=== PATIENT | female | born 1990 | race African-American/Black ===

== ENCOUNTER 2017-08-13 10:10 | Observation (INO) | payer MEDICAID, OTHER ==
[~2017-08-13 10:10] MED LIST: DIPH25TA26
== END 2017-08-13 13:00 | disposition home or self-care (01) | DRG 566 ==
LOC: LDRP 10:10
PROVIDERS: ADMIT Obstetrics & Gynecology; ATTEND Obstetrics & Gynecology
DX: O62.9 Abnormality of forces of labor, unspecified (principal); O26.893 Other specified pregnancy related conditions, third trimester; M54.9 Dorsalgia, unspecified; R10.9 Unspecified abdominal pain; Z3A.37 37 weeks gestation of pregnancy
CPT/HCPCS: 59025; 76818; 81002; G0378

== ENCOUNTER 2017-09-03 10:26 | Observation (INO) | payer MEDICAID | END 2017-09-03 14:50 | disposition home or self-care (01) | DRG 566 | LOC: LDRP 10:26 | PROVIDERS: ADMIT Specialist; ATTEND Specialist | DX: O48.0 Post-term pregnancy (principal); Z3A.40 40 weeks gestation of pregnancy | CPT/HCPCS: 59025; 76818; 81002; G0378 ==

== ENCOUNTER 2017-09-05 10:05 | Observation (INO) | payer MEDICAID ==
[2017-09-05] MEDS ORDERED: PREN-96 PO (11:47)
== END 2017-09-05 11:40 | disposition home or self-care (01) | DRG 566 ==
LOC: LDRP 10:05
PROVIDERS: ADMIT Obstetrics & Gynecology; ATTEND Obstetrics & Gynecology
DX: O26.893 Other specified pregnancy related conditions, third trimester (principal); O62.9 Abnormality of forces of labor, unspecified; M54.5 Low back pain; R10.9 Unspecified abdominal pain; Z3A.40 40 weeks gestation of pregnancy
CPT/HCPCS: 59025; 76818; 81002; G0378

== ENCOUNTER 2017-09-06 08:35 | Inpatient (IN) | payer MEDICAID ==
[~2017-09-06] VITALS: Ht 154.9 cm; Wt 77.6 kg
[~2017-09-06 08:35] MED LIST changes: -DIPH25TA26; +PREN-96 PO
[2017-09-06] MEDS: LACTATED RINGER'S 1,000 ML IV SCH ×2 (09:30→14:48)
[2017-09-06] MEDS ORDERED: LACT. RINGERS/OXYTOCIN 20UNITS 1,000 ML IV SCH (09:50)
[2017-09-06] MEDS ORDERED: DERMOPLAST 60ML BOTTLE TOP PRN (10:00)
[2017-09-06] MEDS ORDERED: LIDOCAINE 2% (LOCAL ANESTH.) PF 5ml SDV ID ONE (10:00)
[2017-09-06] MEDS ORDERED: PHISODERM TOP SOLN 240ML BTL TOP PRN (10:00)
[2017-09-06] MEDS ORDERED: WITCH HAZEL-GLYCERIN PAD TOP PRN (10:00)
[2017-09-06] MEDS ORDERED: NALBUPHINE HCL 10 MG/1ml INJECTION IV PRN (10:00)
[2017-09-06 10:29] LABS: Basophils # (auto) 0 uL; Eosinophils # (auto) 0 uL; Eosinophils % (auto) 0.5 % (0.0-7.0); Lymphocytes # (auto) 1.4 uL; Monocytes # (auto) 0.6 uL; Nucleated Red Blood Cells % 0.1 %; Red Cell Distribution Width 12.6 % (11.8-14.3)
[2017-09-06 10:31] LABS: Basophils % (auto) 0.1 % (0.0-2.0); Hematocrit 36.6 % (36.0-46.0); Hemoglobin 12.8 g/dL (12.2-16.2); Lymphocytes % (auto) 18.7 % (10.0-50.0); Mean Corpuscular Hemoglobin 36.7 pg (28.0-32.0); Mean Corpuscular Hgb Conc. 34.9 g/dL (32.0-36.0); Monocytes % (auto) 7.7 % (0.0-12.0); Neutrophils # (auto) 5.4 uL; Platelet Count (auto) 198 10^3/uL (140-450); Red Blood Cells 3.47 10^6/uL (4.0-5.20); White Blood Cell 7.4 10^3/uL (4.4-10.8)
[2017-09-06 10:33] LABS: Mean Corpuscular Volume 105.3 fL (80.0-100.0)
[2017-09-06 10:42] LABS: Urine Bacteria NONE SEEN /hpf (None Seen); Urine Blood 1+ /uL (Negative); Urine Mucus FEW (None Seen); Urine Specific Gravity 1.018 (1.001-1.035); Urine WBC 36 /hpf (0 - 5)
[2017-09-06 10:54] LABS: Alcohol, Urine < 3.0 mg/dL (0-5); Amphetamine Screen, Urine NEGATIVE (NEGATIVE); Barbiturate Scree,Urine NEGATIVE (NEGATIVE); Benzodiazephine Screen, Urine NEGATIVE (NEGATIVE); Cannabinoid Screen, Urine NEGATIVE (NEGATIVE); Cocaine Screen, Urine NEGATIVE (NEGATIVE); Opiate Scree,Urine NEGATIVE (NEGATIVE); Phencyclidine Screen, Urine NEGATIVE (NEGATIVE)
[2017-09-06 10:56] LABS: INR 0.87 (0.9-1.15); Partial Thromboplastin Time 26.8 sec (23.78-33.04); Prothrombin Time 9.4 sec (9.27-12.13)
[2017-09-06 10:57] LABS: Albumin 2.5 g/dL (3.4-5.0); BUN/Creatinine Ratio 6.5; Bilirubin, Total 0.5 mg/dL (0.2-1.0); Calcium 9.2 mg/dL (8.5-10.1); Potassium 3.6 mmol/L (3.5-5.1); Total Protein 6.2 g/dL (6.4-8.2)
[2017-09-06] MEDS ORDERED: fentaNYL CITRATE 100 MCG/2 ML VL ONE ×2 (19:30→23:31)
[2017-09-06] MEDS ORDERED: NALOXONE HCL 0.4 MG/ML VIAL IV ONE (19:30)
[2017-09-06] MEDS ORDERED: ePHEDrine SULFATE 50 MG/ML AMP IV ONE (19:30)
[2017-09-06] MEDS ORDERED: fentaNYL CITRATE 100 MCG/2 ML VL IV ONE (19:30)
[2017-09-06] MEDS ORDERED: LIDOCAINE HCL 2 %PF INJ 10ML AMP IJ ONE ×2 (19:30→19:31)
[2017-09-06] MEDS ORDERED: fentaNYL W ROPIVACAINE 150 ML EPI SCH (19:30)
[2017-09-06] MEDS ORDERED: NALOXONE HCL 0.4 MG/ML VIAL ONE (19:31)
[2017-09-06] MEDS ORDERED: ePHEDrine SULFATE 50 MG/ML AMP ONE (19:31)
[2017-09-06] MEDS ORDERED: MORPHINE SULF(PF) 0.5MG/ML 10ML VIAL ONE (23:31)
[2017-09-06] MEDS ORDERED: ONDANSETRON HCL 4 MG/2 ML VIAL ONE (23:31)
[2017-09-06] MEDS ORDERED: ceFAZolin 1GM VL ONE (23:31)
[2017-09-06] MEDS ORDERED: SODIUM CHLORIDE LOCK 10 ML ONE (23:31)
[2017-09-06] MEDS ORDERED: OXYTOCIN 10 UNIT/ML 10ML VIAL ONE (23:31)
[2017-09-06] MEDS ORDERED: MIDAZOLAM HCL 1MG/1ML-2 ML VIAL ONE (23:31)
[2017-09-06] MEDS ORDERED: LIDOCAINE 2% (LOCAL ANESTH.) PF 5ml SDV ONE (23:32)
[2017-09-06] MEDS ORDERED: SODIUM BICARBONATE INFANT SYR 10 ML SYRG IV ONE (23:32)
[2017-09-07] VITALS (14 sets, daily range): BP systolic 101–140; BP diastolic 34–78
[2017-09-07] MEDS ORDERED: LACTATED RINGER'S 1,000 ML IV SCH (00:42)
[2017-09-07] MEDS ORDERED: ceFAZolin 1GM/100ML 50 ML IV SCH (00:45)
[2017-09-07] MEDS ORDERED: MORPHINE SULFATE 8mg/ml INJ SDV IV PRN (00:45)
[2017-09-07] MEDS ORDERED: ONDANSETRON HCL 4 MG/2 ML VIAL IV PRN (00:45)
[2017-09-07] MEDS: LACTATED RINGER'S 1,000 ML IV SCH (01:50)
[2017-09-07] MEDS ORDERED: MORPHINE SULF INJ 2 MG/ML SYRINGE 1ML ONE (01:52)
[2017-09-07] MEDS ORDERED: KETOROLAC TROMETH 30 MG/ML 1ML VIAL IV SCH ×3 (03:30→09:30)
[2017-09-07 05:07] LABS: RPR Non Reactive (Non Reactive)
[2017-09-07] MEDS: ceFAZolin 1GM/100ML 50 ML IV SCH ×3 (07:17→23:45)
[2017-09-07] MEDS ORDERED: BISACODYL 10 MG RECT SUPP PR PRN (11:45)
[2017-09-07] MEDS ORDERED: HYDROcodone-ACET 5/325MG TAB PO PRN (11:45)
[2017-09-07] MEDS: SIMETHICONE 80 MG CHEWABLE TABLET PO SCH ×3 (13:01→23:05)
[2017-09-07] MEDS: HYDROcodone-ACET 5/325MG TAB PO PRN ×3 (13:02→23:20)
[2017-09-07] MEDS: IBUPROFEN 800 MG TAB PO PRN (19:56)
[2017-09-07] MEDS: DOCUSATE SOD 100 MG CAP PO SCH (23:05)
[2017-09-08 03:15] VITALS: BP 121/53
[2017-09-08] MEDS: HYDROcodone-ACET 5/325MG TAB PO PRN ×3 (03:31→21:38)
[2017-09-08] MEDS: SIMETHICONE 80 MG CHEWABLE TABLET PO SCH ×3 (06:00→21:37)
[2017-09-08 07:00] VITALS: BP 127/64
[2017-09-08 09:26] LABS: Basophils # (auto) 0 uL; Eosinophils # (auto) 0.1 uL; Lymphocytes # (auto) 1.1 uL; Monocytes # (auto) 0.8 uL; Platelet Count (auto) 197 10^3/uL (140-450)
[2017-09-08 09:29] LABS: Basophils % (auto) 0.2 % (0.0-2.0); Eosinophils % (auto) 0.7 % (0.0-7.0); Hematocrit 35.1 % (36.0-46.0); Lymphocytes % (auto) 12.4 % (10.0-50.0); Mean Corpuscular Hemoglobin 36.3 pg (28.0-32.0); Mean Corpuscular Hgb Conc. 34.2 g/dL (32.0-36.0); Mean Corpuscular Volume 106.3 fL (80.0-100.0); Monocytes % (auto) 8.7 % (0.0-12.0); Red Blood Cells 3.31 10^6/uL (4.0-5.20); Red Cell Distribution Width 12.6 % (11.8-14.3)
[2017-09-08] MEDS: DOCUSATE CALCIUM 240 MG CAP PO SCH (10:27)
[2017-09-08] MEDS: DOCUSATE SOD 100 MG CAP PO SCH ×2 (10:27→21:38)
[2017-09-08 11:00] VITALS: BP 125/63
[2017-09-08 15:00] VITALS: BP 136/61
[2017-09-08] MEDS: IBUPROFEN 800 MG TAB PO PRN (17:10)
[2017-09-08 19:15] VITALS: BP 120/73
[2017-09-08 22:55] VITALS: BP 122/52
[2017-09-09 03:27] VITALS: BP 118/55
[2017-09-09] MEDS: SIMETHICONE 80 MG CHEWABLE TABLET PO SCH ×4 (05:50→21:41)
[2017-09-09 06:50] VITALS: BP 134/68
[2017-09-09] MEDS: DOCUSATE CALCIUM 240 MG CAP PO SCH (10:21)
[2017-09-09] MEDS: DOCUSATE SOD 100 MG CAP PO SCH ×2 (10:21→21:41)
[2017-09-09] MEDS: HYDROcodone-ACET 5/325MG TAB PO PRN ×2 (10:21→22:53)
[2017-09-09 11:00] VITALS: BP 120/59
[2017-09-09 15:00] VITALS: BP 128/82
[2017-09-09] MEDS: IBUPROFEN 800 MG TAB PO PRN (16:20)
[2017-09-09 18:53] VITALS: BP 122/62
[2017-09-09 23:00] VITALS: BP 118/49
[2017-09-10 02:55] VITALS: BP 122/53
[2017-09-10] MEDS: SIMETHICONE 80 MG CHEWABLE TABLET PO SCH (05:47)
[2017-09-10 06:40] VITALS: BP 123/50
[2017-09-10] MEDS: IBUPROFEN 800 MG TAB PO PRN (06:47)
[2017-09-10] MEDS: DOCUSATE CALCIUM 240 MG CAP PO SCH (10:00)
[2017-09-10] MEDS: DOCUSATE SOD 100 MG CAP PO SCH (10:15)
== END 2017-09-10 10:20 | disposition home or self-care (01) | DRG 540 ==
LOC: LDRP 08:35
PROVIDERS: ADMIT Specialist; ATTEND Specialist
PROC: 10D00Z1 Extraction of Products of Conception, Low, Open Approach (ICD-10-PCS; principal; 2017-09-07)
DX: O48.0 Post-term pregnancy (principal); O76 Abnormality in fetal heart rate and rhythm complicating labor and delivery; O62.0 Primary inadequate contractions; O69.1XX0 Labor and delivery complicated by cord around neck, with compression, not applicable or unspecified; Z37.0 Single live birth; Z3A.40 40 weeks gestation of pregnancy; O62.1 Secondary uterine inertia
CPT/HCPCS: 36415; 51702; 59025; 62282; 80053; 80307; 81001; 85025; 85610; 85730; 86592; 86850; 86900; 86901; 94760; 96365; 96366; 96374; 96375; J0690; J1885; J2250; J2405; J2590; J3010

== ENCOUNTER 2025-01-26 09:48 | Emergency (ER) | payer MEDICAID ==
[~2025-01-26] VITALS: Ht 154.9 cm; Wt 78.6 kg
--- NOTE | 2025-01-26 10:15 | ED.PDOC ---
History of Present Illness HPI Comments Ms. Jones is a 34 year old female with no prior medical history who presents today with chief complaint of abdominal pain. She refers for the last 2 days she has had lower abdominal pain described as soreness, non-radiating, 8/10 intensity, associated with increased urinary frequency, night sweats, and consti pation. She denies dysuria, fever, nausea, vomiting, changes in urine, hematuria, malaise, general body aches, chest pain, and palpitations. Due to persistence of symptoms she presents today for evaluation in the ED. On initial eval, the patient seems well, vitals were stable, she is able to ambulate and communicate without difficulty or signs of overt distress. Chief Complaint: Abdominal Pain Time Seen by MD: 09:57 Primary Care Provider: DOESN'T HAVE ONE Allergies: Uncoded Allergies: ASPRIN (Allergy, Unknown, 01/26/25) Home Meds Reported Medications Vit W/ Ferrous Fumara ( One Daily) Daily Tab, 1 TAB PO DAILY, #90 TAB 3 Refills 09/05/17 Information Source: Patient Mode of Arrival: Ambulatory Severity: Mild Timing: Days Duration: Since onset Past Medical History PAST MEDICAL HISTORY: Denies Surgical History: DIAGNOSTIC MEDICAL SONOGRAPHER History: Denies all DIAGNOSTIC MEDICAL SONOGRAPHER Hx Family History Family History: Reviewed,noncontributory to illness Social History Smoker: Cigarettes (Smokes 1-2 cigarettes a week) Alcohol: Rarely Drugs: Marijuana (Smokes 1-2 joints a day) Lives In: Home Constitutional: reports: diaphoresis (Night sweat); denies: chills, fatigue, fever, malaise, sweats, weakness EENTM: denies: blurred vision, double vision, ear discharge, ear ringing, hearing loss, nasal discharge, nose congestion, throat pain Respiratory: denies: cough, hemoptysis, orthopnea, shortness of breath, wheezing Cardiovascular: denies: chest pain, dizzy spells, diaphoresis, Dyspnea on exertion, edema, lightheadedness, palpitations, syncope Gastrointestinal: reports: abdominal pain, constipated; denies: abdomen distended, diarrhea, hematemesis, melena, nausea, poor appetite, poor fluid int santy, vomiting Genitourinary: reports: frequency; denies: burning, dysuria, flank pain, hematuria, incontinence, pain, urgency Neurological: denies: dizziness, fainting, headache, numbness, paresthesia, pre-existing deficit, seizure, tingling, tremors, weakness Musculoskeletal: reports: back pain (Right hip pain ); denies: joint pain, joint swelling, muscle pain, muscle stiffness, neck pain Integumetry: denies: bruises, laceration, lesions, lumps, rash, wounds Physical Exam General Appearance: Normal HEENT: Normal ENT Inspection, PERRL/EOMI, Pharynx Normal Neck: Full Range of Motion, Non-Tender, Normal Inspection Respiratory: Chest Non-Tender, No Accessory Muscle Use, No Respiratory Distress, Normal Breath Sounds Cardiovascular: No Edema, No Murmur, Normal Peripheral Pulses, Regular Rate/Rhythm Breast Exam: Deferred Gastrointestinal: No Pulsatile Mass, Normal Bowel Sounds, Soft, Other (Minor generalized pain to abdominal palpation, mainly concentrated in suprapunic regio n, LLQ, and LUQ) Genitalia: Deferred Pelvic: Deferred Rectal: Deferred Extremities: Normal capillary refill, Normal inspection, Normal range of motion, Non-tender, No pedal edema Neurologic: Alert, Normal Affect, Normal Mood Cerebellar Function: Normal Reflexes: NOT DONE Skin: Normal Color Peripheral Pulses: 4+ dorsalis pedis (R), 4+ dorsalis pedis (L) Lymphatic: Other (No cervical adenopathy ) Was a procedure done? Was a procedure done?: No Differential Dx Considerations may include: Cystitis, Pyelonephritis, Acute Gastritis, Acute gastroenteritis, Conspitation, Pancreatitis, , Ectopic , Ruptured ectopic X-Ray, Labs, Meds, VS Vital Signs Date Time Temp Pulse Resp B/P (MAP) Pulse Ox O2 Delivery O2 Flow Rate FiO2 01/26/25 15:30 87 18 128/93 (105) 98 01/26/25 13:36 82 17 99 Room Air 01/26/25 13:36 98.7 82 17 129/69 (89) 99 98.7 01/26/25 10:10 98.1 85 15 132/58 (82) 99 98.1 01/26/25 10:10 Room Air* 0 21 01/26/25 09:52 98.1 85 15 132/58 99 98.1 Lab Test 01/26/25 10:30 01/26/25 10:22 Range/Units Urine Color Yellow Yellow Urine Clarity Clear Clear Urine pH 5.5 5.0-9.0 Urine Specific [place] 1.031 1.001-1.035 Urine Protein Negative Negative Urine Ketones Negative Negative Urine Blood Negative Negative /uL Urine Nitrite Negative Negative Urine Bilirubin Negative Negative Urine Urobilinogen Normal Negative mg/dL Urine Leukocyte Esterase Negative Negative /uL Urine RBC 3 0 - 4 /hpf Urine Microscopic WBC 2 0-5 /HPF Urine Squamous Epithelial Cells Few <5 /hpf Urine Bacteria Few H None Seen /hpf Urine Hyaline Casts Few 0 - 2 /lpf Urine Mucus Few None Seen Urine Glucose Normal Normal mg/dL Urine Test Positive Negative White Blood Count 4.7 4.4-10.8 10^3/uL Red Blood Count 3.84 L 4.0-5.20 10^6/uL Hemoglobin 13.6 12.2-16.2 g/dL Hematocrit 39.5 36.0-46.0 % Mean Corpuscular Volume 103.0 H 80.0-100.0 fL Mean Corpuscular Hemoglobin 35.4 H 28.0-32.0 pg Mean Corpuscular Hemoglobin Concent 34.4 32.0-36.0 g/dL Red Cell Distribution Width 11.3 L 11.8-14.3 % Platelet Count 264 140-450 10^3/uL Mean Platelet Volume 9.0 6.9-10.8 fL Neutrophils (%) (Auto) 58.8 37.0-80.0 % Lymphocytes (%) (Auto) 32.8 10.0-50.0 % Monocytes (%) (Auto) 6.6 0.0-12.0 % Eosinophils (%) (Auto) 1.3 0.0-7.0 % Basophils (%) (Auto) 0.5 0.0-2.0 % Neutrophils # (Auto) 2.8 1.6-8.6 10 ^3/uL Lymphocytes # (Auto) 1.6 0.4-5.4 10 ^3/uL Monocytes # (Auto) 0.3 0-1.3 10 ^3/uL Eosinophils # (Auto) 0.1 0-0.8 10 ^3/uL Basophils # (Auto) 0 0-0.2 10 ^3/uL Nucleated Red Blood Cells 0.1 % Sodium Level 140 136-145 mmol/L Potassium Level 3.3 L 3.5-5.1 mmol/L Chloride Level 105 98-107 mmol/L Carbon Dioxide Level 28 20-31 mmol/L Anion Gap 7 5-15 Blood Urea Nitrogen 8 L 9-23 mg/dL Creatinine 0.89 0.550-1.02 mg/dL Glomerular Filtration Rate Calc 86 >90 mL/min BUN/Creatinine Ratio 9.0 L 10.0-20.0 Serum Glucose 98 74-106 mg/dL Calcium Level 9.6 8.7-10.4 mg/dL Total Bilirubin 0.9 0.2-1.0 mg/dL Aspartate Amino Transferase (AST) 16 13-40 U/L Alanine Aminotransferase (ALT) < 9 7-40 U/L Alkaline Phosphatase 71 46-116 U/L Total Protein 8.1 5.7-8.2 g/dL Albumin 4.6 3.2-4.8 g/dL Lipase 50 12-53 U/L Beta HCG, Quantitative 2164.7 H 1.5-4.2 mIU/mL Current Medications Medications (Trade) Dose Ordered Sig/Mikayla Route Start Time Stop Time Status Last Admin Acetaminophen (Tylenol Tablet) 325 mg ONCE ONCE PO 01/26/25 12:15 01/26/25 12:16 DC 01/26/25 12:30 Potassium Chloride (Klor-Con Tablet) 40 meq ONCE ONCE PO 01/26/25 12:15 01/26/25 12:16 DC 01/26/25 12:30 Time of 1ST Reevaluation: 12:02 Reevaluation 1ST: Unchanged Patient Education/Counseling: Diagnosis, Treatment Family Education/Counseling: No Family Present Comments The patient presented today with chief complaint of suprapubic pain and con stipation On initial evaluation, the patient seemed well, vitals were stable, she was able to ambulate without difficulty, with no overt signs of distress Physical exam was positive for mild generalized abdominal pain on palpation, concentrated in suprapubic region, LLQ, and LUQ CBC no significant findings, CMP shows mild hypokalemia for which potassium 40 mEq p.o. was given, UA without significant findings, urine test is positive, Lipase is 50 Beta hCG in blood 2516 Acetaminophen 325 mg p.o. once was given for pain Obstetric US shows gestational sac noted in the endometrial canal measuring 0.51 cm which is at arrange for estimating gestational age, no pole or heart rate, no yolk sac. The patient is stable for discharge home We recommend the patient follow up with her merchandiser for further follow-up and workup SEPSIS Sepsis Screen Date sepsis recognized/suspect: Jan 26, 2025 Time Sepsis recognized/suspect: 949 Recent Procedure: No On Antibiotic Therapy: No Respiratory Rate >20: No Heart Rate >90: No Temp<36 C (96.8 F) or >38.3 C: No SBP <90 or MAP <65 mmHG: No New Acute Mental Status Change: No Is the patient on CPAP, BIPAP,: No Physician Orders Ob Ultrasound Comp Less 14wks (01/26/25 13:41) Ob Trans Vaginal Us (01/26/25 ) Vital Signs Date Time Temp Pulse Resp B/P (MAP) Pulse Ox O2 Delivery O2 Flow Rate FiO2 01/26/25 15:30 87 18 128/93 (105) 98 01/26/25 13:36 82 17 99 Room Air 01/26/25 13:36 98.7 82 17 129/69 (89) 99 98.7 01/26/25 10:10 98.1 85 15 132/58 (82) 99 98.1 01/26/25 10:10 Room Air* 0 21 01/26/25 09:52 98.1 85 15 132/58 99 98.1 Laboratory Tests Test 01/26/25 10:22 White Blood Count 4.7 10^3/uL (4.4-10.8) Medications Medications Dose Ordered Sig/Mikayla Route Start Time Stop Time Status Last Admin Dose Admin Acetaminophen 325 mg ONCE ONCE PO 01/26/25 12:15 01/26/25 12:16 DC 01/26/25 12:30 Potassium Chloride 40 meq ONCE ONCE PO 01/26/25 12:15 01/26/25 12:16 DC 01/26/25 12:30 Departure 1 Departure Time of Disposition: 16:36 Impression: Primary Impression: Additional Impression: Abdominal pain Disposition: HOME / SELF CARE / HOMELESS Condition: Stable Additional Instructions: You presented today with chief complaint of suprapubic pain and constipation Physical exam was positive for mild generalized abdominal pain on palpation, concentrated in suprapubic region, LLQ, and LUQ Your workup including a CBC and urine analysis were benign, CMP shows mild hypokalemia for which potassium 40 mEq p.o. was given and acetaminophen was given for pain Urine test is positive and beta hCG in blood 2516 Obstetric US shows gestational sac noted in the endometrial canal measuring 0.51 cm which is at arrange for estimating gestational age, no pole or heart rate, no yolk sac. Based on the data it is unlikely that patient presents with UTI, pyelonephritis, pancreatitis, gastritis, and an ectopic You are stable for discharge home We recommend the patient follow up with her merchandiser for further follow-up and workup within the next week If your symptoms persist or worsen, or should you have any further questions or concerns please return to the ED. I have discussed all the results with the patient including, including that per US ectopic is not completely ruled out, and have spoken about potential signs or symptoms to be mindful of. Critical Care Note Critical Care Time?: No Stability Stability form required: PAT Arce RESIDENT Jan 26, 2025 10:15
[2025-01-26 10:52] LABS: Urine Protein, UAD Negative (Negative)
[2025-01-26 11:00] LABS: Hematocrit 39.5 % (36.0-46.0); Hemoglobin 13.6 g/dL (12.2-16.2); Mean Corpuscular Hemoglobin 35.4 pg (28.0-32.0); Mean Corpuscular Volume 103.0 fL (80.0-100.0); Nucleated Red Blood Cells % 0.1 %
[2025-01-26 11:17] LABS: Alanine Aminotransferase < 9 U/L (7-40); Albumin 4.6 g/dL (3.2-4.8); Alkaline Phosphatase 71 U/L (46-116); Anion Gap 7 (5-15); BUN/Creatinine Ratio 9.0 (10.0-20.0); Blood Urea Nitrogen 8 mg/dL (9-23); Calcium 9.6 mg/dL (8.7-10.4); Carbon Dioxide 28 mmol/L (20-31); Chloride 105 mmol/L (98-107); Glucose 98 mg/dL (74-106); Potassium 3.3 mmol/L (3.5-5.1); Sodium 140 mmol/L (136-145); Total Protein 8.1 g/dL (5.7-8.2)
[2025-01-26 11:18] LABS: Bilirubin, Total 0.9 mg/dL (0.2-1.0)
[2025-01-26] MEDS: POTASSIUM CHL 20 Meq TABLET PO ONE (12:30)
[2025-01-26] MEDS: ACETAMINOPHEN 325 MG TAB PO ONE (12:30)
--- NOTE | 2025-01-26 15:35 | DVH ---
INDICATION: new with abdominal pain TECHNIQUE: Multiple real-time grayscale transabdominal sonographic images along with color and duplex Doppler of the uterus and ovaries were obtained. COMPARISON: None FINDINGS: The uterus measures 8.3 x 4.5 x 4.8 cm. The endometrial stripe measures 12.8 mm. The right ovary measures 4.2 x 3.9 x 3.5 cm. Right ovarian volume is 29.6 ML. There is a 2.4 x 2.4 x 2.4 cm anechoic nodule in the right ovary most likely a corpus luteal cyst. The left ovary measures 2.9 x 2.3 x 2.1 cm. Volume of the left ovary is 7.6 mL. Subsequent color and duplex Doppler interrogation of the ovaries demonstrated symmetric vascular flow to both ovaries, though this does not exclude the possibility of torsion due to the dual blood suppl y. Possible gestational sac is noted in the endometrial canal measuring 0.51 cm which is out of range fo r estimating gestational age. No pole or heart rate. No yolk sac. IMPRESSION: 1. Grossly unremarkable pelvic ultrasound. 2. Cystic area in the endometrial canal out of range for estimating gestational age and there is no pole or heart rate at this time. Recommend follow-up study and beta hCG to exclude occult ectopic.
[2025-01-26 16:40] VITALS: BP 134/66; PULSE 74; RESP 16; TEMP 98.7; O2SAT 98
== END 2025-01-26 16:44 | disposition home or self-care (01) ==
LOC: ER 09:48
DX: O26.891 Other specified pregnancy related conditions, first trimester (principal); R10.24 Suprapubic pain; R10.30 Lower abdominal pain, unspecified; F17.210 Nicotine dependence, cigarettes, uncomplicated; Z3A.01 Less than 8 weeks gestation of pregnancy; R35.0 Frequency of micturition
CPT/HCPCS: 36415; 76801; 76817; 80053; 81001; 81025; 83690; 84702; 85025